=== PATIENT | female | born 1990 | race Caucasian/White ===

== ENCOUNTER 2016-10-31 11:23 | Emergency (ER) | payer BC ==
[~2016-10-31] VITALS: Ht 170.2 cm; Wt 68.0 kg
[2016-10-31] MEDS ORDERED: IV NORMAL SALINE 1000ML BAG 1,000 ML IV ONE (12:00)
[2016-10-31 12:26] LABS: NEG OBC UR NEG; POS OBC UR POS
[2016-10-31] MEDS ORDERED: ONDANSETRON PF 4 MG/2 ML VIAL. IV ONE (12:30)
[2016-10-31 13:03] LABS: POTASSIUM ISTAT 3.6 mmol/L (3.5-5.0)
[2016-10-31 13:05] LABS: HEMATOCRIT 39.6 % (36.0-47.0); HEMOGLOBIN 13.2 g/dL (12.0-15.5); RED BLOOD COUNT 4.35 x10^6/uL (3.50-5.40); RED CELL DISTRIBUTION WIDTH 12.2 % (11.5-14.5)
[2016-10-31 13:14] LABS: CALCIUM 7.8 mg/dL (8.5-10.1); CREATININE 0.7 mg/dL (0.6-1.0); GFR 102.8; POTASSIUM 3.7 mmol/L (3.5-5.1)
[2016-10-31 14:00] VITALS: BP 120/71
--- NOTE | 2016-10-31 14:41 | EKG ---
[facility] [address] [place] [address] Test Date: 2016-10-31 Test Time: 11:45:13 Pat Name: CHAZ SEGOVIA Department: Patient ID: [id number] Room: Gender: F Medical Biller Coder: SAAD ER : 1990 Requested By: RYLEY REICO Order Number: [id number] Reading MD: Mariola Leyva Measurements Intervals [place] Rate: 93 P: 11 NC: 128 QRS: 62 QRSD: 90 T: 36 QT: 346 QTc: 433 Interpretive Statements SINUS RHYTHM LEFT ATRIAL ABNORMALITY INCOMPLETE RIGHT BUNDLE BRANCH BLOCK ABNORMAL ECG RI6.01 No previous ECG available for comparison Electronically Signed On 11-01-2016 0:49:29 [employer] by Mariola Leyva
--- NOTE | 2016-10-31 14:51 | RAD ---
Indication syncope. Protocol study. PA and lateral views of the chest were obtained. No prior imaging is available. The heart and pulmonary vessels are normal. The mediastinum has a normal appearance. 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 No acute parenchymal infiltrate is seen. There is no pleural fluid or pneumothorax. IMPRESSION: No acute or significant finding in the chest
--- NOTE | 2016-10-31 17:11 | ED.ADGEN ---
Past Medical History Past Medical History: Other Additional Past Medical Histor: HX OF SVT Past Surgical History: Cholecystectomy, Other Additional Past Surgical Histo: BX OF SKULL BONE, BENIGN Alcohol Use: Occasionally Drug Use: None Adult General Chief Complaint Chief Complaint: SYNCOPE HPI HPI Patient is a 26 year old woman, history of SVT, who presents to the emergency department with a complaint of syncope versus near-syncope, that occurred today at work. Patient states she was out drinking last night, and drank "a lot", which she states is unusual for her. She states that she went home and went to sleep, woke up home over this morning and reported to her place of employment. She states that she was feeling slightly nauseous and lightheaded, denies vertiginous symptoms, states that she was called and her boss's office as she was feeling unwell, was seated in a chair, when she had a brief syncopal versus near-syncopal episode. She states that she opened her eyes to note people "in my face", no seizure activity was reported, patient denies any palpitations, states that she had some mild chest pain, also some mild abdominal pain, which is now resolved, as is the nausea, has experienced no vomiting, denies any injuries, any weakness numbness or tingling, has a mild headache, no blurred vision, states that her symptoms are consistent with previous episodes of syncope, and with previous episodes of drinking. She does take propanolol for her history of SVT, has not taken her medications today. Denies any drugs, other for cigarettes. Review of Systems Review of Systems Constitutional: Denies fever or chills. [] Eyes: Denies change in visual acuity. [] HENT: Denies nasal congestion or sore throat. [] Respiratory: Denies cough or shortness of breath. [] Cardiovascular: Denies chest pain or edema. [] GI: Denies abdominal pain, nausea, vomiting, bloody stools or diarrhea. [] : Denies dysuria. [] Musculoskeletal: Denies back pain or joint pain. [] Integument: Denies rash. [] Neurologic: Denies headache, focal weakness or sensory changes. [] Endocrine: Denies polyuria or polydipsia. [] Lymphatic: Denies swollen glands. [] Psychiatric: Denies depression or anxiety. [] Current Medications Current Medications Current Medications Medications (Trade) Dose Ordered Sig/Yelena Start Time Stop Time Status Last Admin Dose Admin Ondansetron HCl (Zofran) 4 mg 1X ONCE 10/31/16 12:30 10/31/16 12:31 DC 10/31/16 12:17 4 MG Sodium Chloride (Iv Sodium Chloride 0.9% 1000ml Bag) 1,000 ml @ 1,000 mls/hr 1X ONCE 10/31/16 12:00 10/31/16 12:59 DC 10/31/16 12:05 1,000 MLS/HR Allergies Allergies Allergies Coded Allergies Type Severity Reaction Last Updated Verified Iodine and Iodide Containing Produc Allergy Intermediate HIVES 10/31/16 Yes diphenhydramine Allergy Intermediate HIVES 10/31/16 Yes lorazepam Adverse Reaction Intermediate PATIENT REPORTS "INTOLERANCE" UNKNOWN WHAT 10/31/16 Yes Physical Exam Physical Exam Constitutional: Well developed, well nourished, no acute distress, non-toxic appearance. [] HENT: Normocephalic, atraumatic, bilateral external ears normal, oropharynx moist, no oral exudates, nose normal. [] Eyes: PERRLA, EOMI, conjunctiva normal, no discharge. [] Neck: Normal range of motion, no tenderness, supple, no stridor. [] Cardiovascular:Heart rate regular rhythm, no murmur [] Lungs & Thorax: Bilateral breath sounds clear to auscultation [] Abdomen: Bowel sounds normal, soft, no tenderness, no masses, no pulsatile masses. [] Skin: Warm, dry, no erythema, no rash. [] Back: No tenderness, no CVA tenderness. [] Extremities: No tenderness, no cyanosis, no clubbing, ROM intact, no edema. [] Neurologic: Alert and oriented X 3, normal motor function, normal sensory function, no focal deficits noted. [] Psychologic: Affect normal, judgement normal, mood normal. [] Current Patient Data Vital Signs Vital Signs Date Time Temp Pulse Resp B/P Pulse Ox O2 Delivery O2 Flow Rate FiO2 10/31/16 12:30 98 24 116/72 100 Room Air 10/31/16 11:23 97.6 97.6 Lab Values Laboratory Tests Test 10/31/16 11:39 10/31/16 12:10 10/31/16 12:55 10/31/16 13:00 Glucose (Fingerstick) 87mg/dL (70-99) Urine Test Negative (NEG) White Blood Count 8.0x10^3/uL (4.0-11.0) Red Blood Count 4.35x10^6/uL (3.50-5.40) Hemoglobin 13.2g/dL (12.0-15.5) Hematocrit 39.6% (36.0-47.0) Mean Corpuscular Volume 91fL (79-100) Mean Corpuscular Hemoglobin 30pg (25-35) Mean Corpuscular Hemoglobin Concent 33g/dL (31-37) Red Cell Distribution Width 12.2% (11.5-14.5) Platelet Count 261x10^3/uL (140-400) Sodium Level 143mmol/L (136-145) Potassium Level 3.7mmol/L (3.5-5.1) Chloride Level 109mmol/L (98-107) H Carbon Dioxide Level 26mmol/L (21-32) Anion Gap 8 (6-14) 19mmol/L (6-14) H Blood Urea Nitrogen 12mg/dL (7-20) Creatinine 0.7mg/dL (0.6-1.0) Estimated GFR (Cockcroft-Gault) 102.8 Glucose Level 103mg/dL (70-99) H 97mg/dL (70-99) Calcium Level 7.8mg/dL (8.5-10.1) L POC Hemoglobin 12.9g/dL (12-15) POC Hematocrit 38% (36-40) POC Sodium 141mmol/L (135-145) POC Potassium 3.6mmol/L (3.5-5.0) POC Chloride 104mmol/L (98-110) POC Total CO2 22mmol/L (23-32) L POC Blood Urea Nitrogen 10mg/dL (8-26) POC Creatinine 0.6mg/dL (0.5-1.4) POC Ionized Calcium (Jef) 1.08mmol/L (1.13-1.32) L Laboratory Tests 10/31/16 12:55 Laboratory Tests 10/31/16 12:55 10/31/16 13:00 EKG EKG EC: Sinus rhythm, heart rate 93 beats/minute, moderate baseline artifact noted, QTc of 433, IA of 128, QRS of 90, upright axis, incomplete right bundle yennifer block noted, abnormal ECG, does not meet STEMI criteria. As interpreted by me. [] Radiology/Procedures Radiology/Procedures [] [facility] [address] [place] [address] IMAGING REPORT Signed PATIENT: CHAZ SEGOVIA ACCOUNT: [id number] : 1990 LOCATION: ER AGE: 26 SEX: F EXAM STATUS: REG ER ORD. PHYSICIAN: RYLEY RECIO DO REASON: Syncope/ passed out at work PROCEDURE: CHEST PA & LATERAL Indication syncope. Protocol study. PA and lateral views of the chest were obtained. No prior imaging is available. The heart and pulmonary vessels are normal. The mediastinum has a normal appearance. 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 No acute parenchymal infiltrate is seen. There is no pleural fluid or pneumothorax. IMPRESSION: No acute or significant finding in the chest DICTATED and SIGNED BY: MARCELLE MARTINEZ MD DATE: 10/31/16 144 CC: RYLEY RECIO DO; NO PCP ~ Course & Med Decision Making Course & Med Decision Making Pertinent Labs and Imaging studies reviewed. (See chart for details) Patient's test is negative, heart rate is in the 90s to low 100s, in sinus rhythm on the monitor, chest x-rays unremarkable, as are her basic laboratory studies. Patient's call intoxication that occurred the night before is the likely cause of her symptoms, which are improving at this time. On reevaluation, after receiving a liter of fluids and IV Zofran, patient states she is feeling much better and would like to be discharged home, a coworker is present with her in the emergency department. Orthostatics obtained, patient has no recurrence of her lightheadedness or near syncopal type symptoms, lying flat heart rate is 101 saturation 100%, blood pressure is 108/68, seated, blood pressure is 130/83, heart rate is 104 oxygen saturation is 99%, and standing heart rate of 110, oxygen saturation 100%, blood pressure 122/75. Patient ambulated in the ED as well without any recurrence of symptoms. Discussed with patient concerning symptoms that would prompt return, importance of staying well -hydrated, and avoiding alcohol intoxication, patient voiced understanding and agreement, discharged home in stable condition plan follow-up with her primary care provider and return to the ED for concerning symptoms as discussed. Dragon Disclaimer Dragon Disclaimer This electronic medical record was generated, in whole or in part, using a voice recognition dictation system. Departure Impression: Primary Impression: Syncope Additional Impression: Alcohol ingestion Disposition: 01 HOME, SELF-CARE Condition: IMPROVED Problem Qualifiers Primary Impression: Syncope Syncope type: unspecified Qualified Code: R55 - Syncope and collapse RYLEY RECIO DO Oct 31, 2016 17:11
== END 2016-10-31 15:45 | disposition home or self-care (01) ==
LOC: ER 11:23
DX: R55 Syncope and collapse (principal); F10.129 Alcohol abuse with intoxication, unspecified; I47.1 Supraventricular tachycardia; Z79.899 Other long term (current) drug therapy; Z88.8 Allergy status to other drugs, medicaments and biological substances
CPT/HCPCS: 36415; 71020; 80047; 80048; 81025; 82947; 85027; 93005; 96361; 96374; 99285; J2405; J7030